=== PATIENT | male | born 1965 | race Caucasian/White ===

== ENCOUNTER 2019-09-16 14:37 | Emergency (ER) | payer BC ==
[~2019-09-16] VITALS: Ht 175.3 cm; Wt 80.6 kg
[2019-09-16] MEDS ORDERED: MUPI30CR TOP (16:54)
[2019-09-16 17:00] VITALS: BP 118/60
== END 2019-09-16 16:58 | disposition home or self-care (01) ==
LOC: M ED 14:37
DX: L03.211 Cellulitis of face (principal)